=== PATIENT | male | born 1975 | race Caucasian/White ===

== ENCOUNTER 2017-04-28 11:14 | Emergency (ER) | payer OTHER ==
[2017-04-28 11:35] VITALS: BP 168/106; PULSE 96; RESP 16; TEMP 98.3
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
== END 2017-04-28 12:00 | disposition home or self-care (01) ==
LOC: EC 11:14
DX: K04.7 Periapical abscess without sinus (principal); G89.29 Other chronic pain; M54.5 Low back pain; M25.559 Pain in unspecified hip; F17.200 Nicotine dependence, unspecified, uncomplicated
CPT/HCPCS: 99283

== ENCOUNTER 2020-08-13 23:00 | Emergency (ER) | payer OTHER ==
[2020-08-13 23:10] VITALS: RESP 18
--- NOTE | 2020-08-13 23:14 | ED ---
Overdose HPI - General Chief Complaint: Overdose Stated Complaint: Mental Health Time Seen by Provider: 08/13/20 23:12 Source: patient, police, EMS Mode of arrival: EMS - History of Present Illness Initial Comments: Godfrey is a 45yo M brought to the ER via EMS after an apparent intentional ingestion. Per EMS the patient admitted to them that he had taken 5 pills of Seroquel, u nknown dosage. Stated he did this after being in a verbal this agreement with his girlfriend. Patient had been drinking today. Upon arrival in the emergency department patient is denying any ingestions, suicidal or homicidal ideation. - Related Data Home Medications Medication Instructions Recorded Confirmed Diltiazem HCl [Diltiazem ER] 240 mg PO DAILY 04/28/17 08/14/20 Allergies Allergy/AdvReac Type Severity Reaction Status Date / Time No Known Allergies Allergy Verified 08/14/20 08:10 Review of Systems ROS Statement: Those systems with pertinent positive or pertinent negative responses have been documented in the HPI. ROS Other: All systems not noted in ROS Statement are negative. Past Medical History Past Medical History: Hypertension History of Any Multi-Drug Resistant Organisms: None Reported Additional Past Surgical History / Comment(s): oral surgery Past Psychological History: Anxiety, Depression Past Alcohol Use History: Occasional Past Drug Use History: Heroin, Marijuana General Exam - General Exam Comments Initial Comments: Physical Exam GENERAL: Patient is well-developed and well-nourished. Patient is nontoxic and well-hydrated and is in no distress. HENT: Normocephalic, Atraumatic. EYES: PERRL, EOMI PULMONARY: Unlabored respirations. CARDIOVASCULAR: RRR Warm and well perfused extremities ABDOMEN: Non-distended SKIN: No rashes or bruising : Deferred NEUROLOGIC: Alert and oriented Normal speech Normal gait MUSCULOSKELETAL: Moving all extremities with no apparent injury PSYCHIATRIC: No SI/HI Course Vital Signs 08/13/20 08/14/20 08/14/20 23:01 03:21 05:00 Temperature 98.7 F Pulse Rate 96 90 92 Respiratory 18 18 18 Rate Blood Pressure 156/103 144/100 130/98 O2 Sat by Pulse 99 Oximetry 08/14/20 08/14/20 08:30 13:02 Temperature 98.0 F Pulse Rate 88 88 Respiratory 18 18 Rate Blood Pressure 136/89 144/87 O2 Sat by Pulse 97 99 Oximetry Medical Decision Making - Medical Decision Making Patient was seen and evaluated history is obtained from patient, EMS and police Patient will be petitioned by the police for suicidal statements and ingestion Tox workup was initiated EKG was obtained due to concern for ingestion, EKG was obtained at 2321, rate is 93 rhythm is sinus, leftward axis, normal intervals, IN 166, QRS he 6, QTC [address] elevations or depressions no evidence of acute ischemia or infarction. No QRS widening or prolonged QT concerning for toxic ingestion. Patient medically cleared for evaluation by EPS at 6:30 am - Lab Data Result diagrams: 08/13/20 23:20 08/13/20 23:20 Lab Results 08/13/20 08/13/20 08/13/20 Range/Units 23:20 23: 23:20 WBC 11.5 H (3.8-10.6) k/uL RBC 4.87 (4.30-5.90) m/uL Hgb 15.4 (13.0-17.5) gm/dL Hct 47.0 (39.0-53.0) % MCV 96.6 (80.0-100.0) fL MCH 31.6 (25.0-35.0) pg MCHC 32.7 (31.0-37.0) g/dL RDW 13.6 (11.5-15.5) % Plt Count 291 (150-450) k/uL Neutrophils % 49 % Lymphocytes % 42 % Monocytes % 3 % Eosinophils % 3 % Basophils % 1 % Neutrophils # 5.7 (1.3-7.7) k/uL Lymphocytes # 4.9 H (1.0-4.8) k/uL Monocytes # 0.4 (0-1.0) k/uL Eosinophils # 0.3 (0-0.7) k/uL Basophils # 0.1 (0-0.2) k/uL Sodium 142 (137-145) mmol/L Potassium 3.7 (3.5-5.1) mmol/L Chloride 104 (98-107) mmol/L Carbon Dioxide 28 (22-30) mmol/L Anion Gap 10 mmol/L BUN 10 (9-20) mg/dL Creatinine 0.79 (0.66-1.25) mg/dL Est GFR (CKD-EPI)AfAm >90 (>60 ml/min/1.73 sqM) Est GFR (CKD-EPI)NonAf >90 (>60 ml/min/1.73 sqM) Glucose 86 (74-99) mg/dL Calcium 10.6 H (8.4-10.2) mg/dL Total Bilirubin 0.3 (0.2-1.3) mg/dL AST 30 (17-59) U/L ALT 28 (4-49) U/L Alkaline Phosphatase 100 (38-126) U/L Total Protein 7.3 (6.3-8.2) g/dL Albumin 4.6 (3.5-5.0) g/dL Salicylates <1.0 mg/dL Urine Opiates Screen Not Detected (NotDetected) Ur Oxycodone Screen Not Detected (NotDetected) Urine Methadone Screen Not Detected (NotDetected) Ur Propoxyphene Screen Not Detected (NotDetected) Acetaminophen <10.0 ug/mL Ur Barbiturates Screen Not Detected (NotDetected) U Tricyclic Antidepress Not Detected (NotDetected) Ur Phencyclidine Scrn Not Detected (NotDetected) Ur Amphetamines Screen Not Detected (NotDetected) U Methamphetamines Scrn Not Detected (NotDetected) U Benzodiazepines Scrn Detected H (NotDetected) Urine Cocaine Screen Not Detected (NotDetected) U Marijuana (THC) Screen Not Detected (NotDetected) Serum Alcohol 210 H* mg/dL Disposition Clinical Impression: Depression Disposition: HOME SELF-CARE Condition: Stable Is patient prescribed a controlled substance at d/c from ED?: No Referrals: Jossy Daniels MD [Primary Care Provider] - 1-2 days
[2020-08-13 23:32] LABS: Basophils # (A) 0.1 k/uL (0-0.2); Basophils % (A) 1 %; Eosinophils # (A) 0.3 k/uL (0-0.7); Eosinophils % (A) 3 %; HGB 15.4 gm/dL (13.0-17.5); Lymphocytes # (A) 4.9 k/uL (1.0-4.8); Lymphocytes % (A) 42 %; MCH 31.6 pg (25.0-35.0); MCHC 32.7 g/dL (31.0-37.0); MCV 96.6 fL (80.0-100.0); Mean Platelet Volume 7.1; Monocytes # (A) 0.4 k/uL (0-1.0); Monocytes % (A) 3 %; Neutrophils # (A) 5.7 k/uL (1.3-7.7); Neutrophils % (A) 49 %; Platelet Count 291 k/uL (150-450); RBC 4.87 m/uL (4.30-5.90); RDW 13.6 % (11.5-15.5); WBC 11.5 k/uL (3.8-10.6)
[2020-08-14 00:08] LABS: ALT 28 U/L (4-49); AST 30 U/L (17-59); Acetaminophen <10.0 ug/mL; African American GFR (CKD) >90 (>60 ml/min/1.73 sqM); Albumin 4.6 g/dL (3.5-5.0); Alkaline Phosphatase 100 U/L (38-126); Anion Gap 10 mmol/L; Blood Urea Nitrogen 10 mg/dL (9-20); Calcium 10.6 mg/dL (8.4-10.2); Carbon Dioxide 28 mmol/L (22-30); Chloride 104 mmol/L (98-107); Glucose 86 mg/dL (74-99); Non-African American GFR(CKD) >90 (>60 ml/min/1.73 sqM); Potassium 3.7 mmol/L (3.5-5.1); Salicylate <1.0 mg/dL; Sodium 142 mmol/L (137-145); Total Bilirubin 0.3 mg/dL (0.2-1.3); Total Protein 7.3 g/dL (6.3-8.2)
[2020-08-14 00:09] LABS: Amphetamine Screen,Urine Not Detected (NotDetected); Barbiturate Screen,Urine Not Detected (NotDetected); Benzodiazepines Screen,Urine Detected (NotDetected); Cocaine Screen,Urine Not Detected (NotDetected); Methadone Screen, Urine Not Detected (NotDetected); Opiate Screen,Urine Not Detected (NotDetected); Oxycodone Screen, Urine Not Detected (NotDetected); Phencyclidine Screen,Urine Not Detected (NotDetected); Tricyclic Antidepressant,Urine Not Detected (NotDetected); Urn Cannabinoid Scrn Not Detected (NotDetected)
[2020-08-14 00:10] LABS: Alcohol 210 mg/dL
[2020-08-14] MEDS ORDERED: ALPRAZolam 1 MG TAB PO PRN (03:36)
[2020-08-14] MEDS ORDERED: DILTIAZEM CD 240 MG CAP.ER.24H PO SCH (04:00)
[2020-08-14 08:35] VITALS: PULSE 88
[2020-08-14 13:03] VITALS: BP 144/87; TEMP 98
== END 2020-08-14 13:10 | disposition home or self-care (01) ==
LOC: EC 23:00
DX: F32.9 Major depressive disorder, single episode, unspecified (principal); T43.592A Poisoning by other antipsychotics and neuroleptics, intentional self-harm, initial encounter; I10 Essential (primary) hypertension; Z79.899 Other long term (current) drug therapy
CPT/HCPCS: 82075; 36415; 93005; 80053; 85025; 80306; 83520; 99285; G0480 ×2; 80320; 80329

== ENCOUNTER 2021-04-22 19:35 | Emergency (ER) | payer OTHER ==
[2021-04-22 19:51] VITALS: BP 142/107; PULSE 116; RESP 20; TEMP 98.5
[2021-04-22] MEDS ORDERED: KETOROLAC 15 MG/ML 1 ML VIAL IM STA (20:05)
[2021-04-22] MEDS ORDERED: ACETAMINOPHEN TAB 500 MG TAB PO STA (20:05)
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
--- NOTE | 2021-04-22 20:26 | XR ---
EXAMINATION TYPE: XR ankle complete RT DATE OF EXAM: 04/22/2021 COMPARISON: NONE HISTORY: Pain. Injury. TECHNIQUE: 3 views FINDINGS: I see no fracture nor dislocation. Ankle mortise is anatomic. There is soft tissue swelling over the lateral malleolus. IMPRESSION: Soft tissue swelling. No fracture. Small Achilles calcaneal spur.
== END 2021-04-22 20:40 | disposition home or self-care (01) ==
LOC: EC 19:35
DX: S93.401A Sprain of unspecified ligament of right ankle, initial encounter (principal); R45.1 Restlessness and agitation; I10 Essential (primary) hypertension; F32.9 Major depressive disorder, single episode, unspecified; F41.9 Anxiety disorder, unspecified; F17.200 Nicotine dependence, unspecified, uncomplicated; F12.90 Cannabis use, unspecified, uncomplicated; F11.90 Opioid use, unspecified, uncomplicated; X50.1XXA Overexertion from prolonged static or awkward postures, initial encounter
CPT/HCPCS: 73610; 99283; 96372; J1885

== ENCOUNTER 2022-05-07 07:54 | Emergency (ER) | payer OTHER ==
[2022-05-07 08:01] VITALS: BP 157/99; PULSE 110; RESP 20; TEMP 97.9
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
--- NOTE | 2022-05-07 08:48 | XR ---
EXAMINATION TYPE: XR shoulder complete RT DATE OF EXAM: 05/07/2022 CLINICAL HISTORY: Fall with pain TECHNIQUE: Three views of the right shoulder are obtained. COMPARISON: Recent right shoulder MRI April 18, 2022 FINDINGS: There is no acute fracture/dislocation evident in the right shoulder. The acromioclavicul ar and glenohumeral joint spaces appear within normal limits. The visualized ribs are intact and unr emarkable. IMPRESSION: There is no acute fracture or dislocation in the right shoulder.
== END 2022-05-07 09:07 | disposition home or self-care (01) ==
LOC: EC 07:54
DX: S46.911A Strain of unspecified muscle, fascia and tendon at shoulder and upper arm level, right arm, initial encounter (principal); I10 Essential (primary) hypertension; F17.200 Nicotine dependence, unspecified, uncomplicated; W13.3XXA Fall through floor, initial encounter
CPT/HCPCS: 99284

== ENCOUNTER 2022-08-27 10:21 | Emergency (ER) | payer OTHER ==
[2022-08-27 10:40] VITALS: TEMP 97.8
[2022-08-27] MEDS ORDERED: DIPH,PERTUS(ACELL)TETVAC-LF 0.5 ML VIAL IM ONE (11:38)
[2022-08-27] MEDS ORDERED: SULFAMETHOX-TMP 800-160MG 1 EACH TAB PO STA (11:39)
[2022-08-27] MEDS ORDERED: KETOROLAC 15 MG/ML 1 ML VIAL IM STA (11:40)
[2022-08-27] MEDS ORDERED: amLODIPine 5 MG TAB PO STA (11:56)
--- NOTE | 2022-08-27 11:58 | ED ---
General Adult HPI - General Chief complaint: Skin/Abscess/Foreign Body Stated complaint: possible spider bite Time Seen by Provider: 08/27/22 11:25 Source: patient, RN notes reviewed, old records reviewed Mode of arrival: ambulatory Limitations: no limitations - History of Present Illness Initial comments: Patient is a 47-year-old male with past medical history remarkable for hypertension who presents emergency department seeking evaluation of a suspected spider bite. Appears to be homeless. Lives in tent. States he was bit by a spider on his back. This occurred yesterday. He wants to be evaluated. Endorses chronic right hip pain. Denies any fevers, chills, chest pain, shortness breath, abdominal pain, nausea, vomiting. Does have a history of hypertension, and is asking for a new antihypertensive medication. Does not follow up with their PCP. Presents for further evaluation at this time. Is also requesting a tetanus booster. - Related Data Home Medications Medication Instructions Recorded Confirmed dilTIAZem HCL [Diltiazem ER] 240 mg PO DAILY 04/28/17 08/14/20 Previous Rx's Medication Instructions Recorded Sulfamethox-Tmp 800-160Mg [Bactrim 1 tab PO Q12HR 5 Days #10 tab 08/27/22 DS 800-160 mg] amLODIPine [Norvasc] 5 mg PO DAILY 28 Days #28 tab 08/27/22 Allergies Allergy/AdvReac Type Severity Reaction Status Date / Time No Known Allergies Allergy Verified 08/27/22 10:40 Review of Systems ROS Statement: Those systems with pertinent positive or pertinent negative responses have been documented in the HPI. Review of Systems: CONST: Denies fever EYES: Denies blurry vision ENT: Denies nasal congestion C/V: Denies Chest pain RESP: Denies shortness of breath GI: Denies abdominal pain : Denies dysuria SKIN: Endorses bug bite MSK: Endorses chronic right hip. NEURO: Denies headache ROS Other: All systems not noted in ROS Statement are negative. Past Medical History Past Medical History: Hypertension History of Any Multi-Drug Resistant Organisms: None Reported Past Surgical History: No Surgical Hx Reported Additional Past Surgical History / Comment(s): oral surgery Past Psychological History: Anxiety, Depression Smoking Status: Current every day smoker Past Alcohol Use History: Occasional Past Drug Use History: Heroin, Marijuana, Opiates General Exam - General Exam Comments Initial Comments: General: Appears in no acute distress. HEAD: Normal with no signs of head trauma. EYES: EOMI ENT: Hearing grossly intact, normal oropharynx. RESPIRATORY: No respiratory distress. Clear breath sounds bilaterally. C/V: Regular rate and rhythm. S1 and S2 auscultated. Peripheral pulses 2+ intact throughout. ABD: Nondistended EXT: Normal range of motion, no obvious deformity SKIN: He has what appears to be a bug bite located over the mid left back. It is erythematous. It is somewhat draining. No induration. No fluctuance. NEURO: Alert and oriented 4. Limitations: no limitations Course Vital Signs 08/27/22 08/27/22 10:38 12:41 Temperature 97.8 F Pulse Rate 91 87 Respiratory 20 16 Rate Blood Pressure 184/117 156/99 O2 Sat by Pulse 99 100 Oximetry Medical Decision Making - Medical Decision Making Based on the patient's presentation and physical exam, concern for a bug bite. Also is requesting new blood pressure medications. He is mildly hypertensive on arrival. We will start him on Norvasc 5 mg and he will be given follow-up with PCP. He is requesting antibiotic as well as he will be given Bactrim, as well as a tetanus booster. He'll be given Toradol for pain. Do not believe that imaging or labs are required at this time. He was in agreement this plan. Strict return precautions were discussed. Vital signs within except for limits. I will provide the patient with a prescription for Norvasc, bactrim I instructed the patient to follow up with their PCP in the next 1-3 days. I provided contact information for follow up with PCP. I explained that the patient should return to the emergency department if they experience any worsening symptoms. Strict return precautions were discussed with the patient. The patient expressed understanding of these instructions. I answered all questions that the patient had. The patient was discharged home in good condition with their prescriptions and follow up information. Disposition Clinical Impression: Hypertension, Bite Disposition: HOME SELF-CARE Condition: Good Instructions (If sedation given, give patient instructions): Insect Bite or Sting (ED), Hypertension (ED) Prescriptions: Sulfamethox-Tmp 800-160Mg [Bactrim DS 800-160 mg] 1 tab PO Q12HR 5 Days #10 tab amLODIPine [Norvasc] 5 mg PO DAILY 28 Days #28 tab Is patient prescribed a controlled substance at d/c from ED?: No Referrals: Kp Suggs MD [Primary Care Provider] - 1-2 days Callie Bauman MD [REFERRING] - 1-2 days Time of Disposition: 11:55
[2022-08-27 12:42] VITALS: BP 156/99; PULSE 87; RESP 16
== END 2022-08-27 12:45 | disposition home or self-care (01) ==
LOC: EC 10:21
DX: T63.301A Toxic effect of unspecified spider venom, accidental (unintentional), initial encounter (principal); I10 Essential (primary) hypertension; F41.9 Anxiety disorder, unspecified; F32.A Depression, unspecified; F17.200 Nicotine dependence, unspecified, uncomplicated; F11.90 Opioid use, unspecified, uncomplicated; F12.90 Cannabis use, unspecified, uncomplicated; Z79.899 Other long term (current) drug therapy; Z23 Encounter for immunization
CPT/HCPCS: 90715; 99282; 96372; 90471; J1885

== ENCOUNTER 2023-11-05 12:24 | Emergency (ER) | payer OTHER ==
[2023-11-05 12:40] VITALS: RESP 16; TEMP 98.6
[2023-11-05] MEDS ORDERED: lisinopriL 20 MG TAB PO STA (13:25)
--- NOTE | 2023-11-05 13:29 | ED ---
Recheck HPI - General Chief Complaint: Recheck/Abnormal Lab/Rx Stated Complaint: Hypertension Time Seen by Provider: 11/05/23 12:51 Source: patient, RN notes reviewed Mode of arrival: ambulatory Limitations: no limitations - History of Present Illness Initial Comments: This is a 48-year-old male who presents to the emergency department for medication refills. States that he was started on lisinopril about a month ago for his blood pressure, and it seems to be working well. Currently takes 40 mg. He's been out of this for about a week and is requesting a refill. Denies any chest pain, shortness of breath, or headaches and otherwise has no complaints. MD Complaint: medication refill request - Related Data Home Medications Medication Instructions Recorded Confirmed dilTIAZem HCL [Diltiazem ER] 240 mg PO DAILY 04/28/17 08/14/20 Previous Rx's Medication Instructions Recorded Sulfamethox-Tmp 800-160Mg [Bactrim 1 tab PO Q12HR 5 Days #10 tab 08/27/22 DS 800-160 mg] amLODIPine [Norvasc] 5 mg PO DAILY 28 Days #28 tab 08/27/22 lisinopriL 40 mg PO DAILY #30 tab 11/05/23 Allergies Allergy/AdvReac Type Severity Reaction Status Date / Time No Known Allergies Allergy Verified 08/27/22 10:40 Review of Systems ROS Statement: Those systems with pertinent positive or pertinent negative responses have been documented in the HPI. ROS Other: All systems not noted in ROS Statement are negative. Past Medical History Past Medical History: Hypertension History of Any Multi-Drug Resistant Organisms: None Reported Past Surgical History: No Surgical Hx Reported Additional Past Surgical History / Comment(s): oral surgery Past Psychological History: Anxiety, Depression Smoking Status: Current every day smoker Past Alcohol Use History: Occasional Past Drug Use History: Heroin, Marijuana, Opiates General Exam Limitations: no limitations General appearance: alert, in no apparent distress Head exam: Present: atraumatic, normocephalic, normal inspection Respiratory exam: Present: normal lung sounds bilaterally. Absent: respiratory distress, wheezes, rales, rhonchi, stridor Cardiovascular Exam: Present: regular rate, normal rhythm, normal heart sounds. Absent: systolic murmur, diastolic murmur, rubs, gallop, clicks Neurological exam: Present: alert, oriented X3, CN II-XII intact Psychiatric exam: Present: normal affect, normal mood Skin exam: Present: warm, dry, intact, normal color. Absent: rash Course Vital Signs 11/05/23 11/05/23 12:34 13:39 Temperature 98.6 F Pulse Rate 97 69 Respiratory 16 16 Rate Blood Pressure 158/101 158/96 O2 Sat by Pulse 98 97 Oximetry Medical Decision Making - Medical Decision Making This is a 48-year-old male who presents to the emergency department for medication refills. Was pt. sent in by a medical professional or institution? @ -No Did you speak to anyone other than the patient for history? @ -No Did you review nursing and triage notes? @ -Yes, and I agree, it is accurate with regards to the patient's symptoms. Were old charts reviewed? @ -No Differential Diagnosis? @ -Not applicable EKG interpreted by me (3pts min.)? @ -Not obtained X-rays interpreted by me (1pt min.)? @ -Not obtained CT interpreted by me (1pt min.)? @ -Not obtained U/S interpreted by me (1pt. min.)? @ -Not obtained What testing was considered but not performed? (CT, X-rays, U/S, labs)? Why? @ -None What meds were considered but not given? Why? @ -None Did you discuss the management of the patient with other professionals? @ -No Did you reconcile home meds? @ -No Was smoking cessation discussed for >3mins.? @ -No Was critical care preformed (if so, how long)? @ -No Were there social determinants of health that impacted care today? How? (Homelessness, low income, unemployed, alcoholism, drug addiction, transportation, low edu. Level, literacy, decrease access to med. care, [facility]ci, rehab)? @ -No Was there de-escalation of care discussed even if they declined? (Discuss DNR or withdrawal of care, Hospice)? @ -No What co-morbidities impacted this encounter? (DM, HTN, Smoking, COPD, CAD, Cancer, CVA, Hep., AIDS, mental health diagnosis, sleep apnea, morbid obesity)? @ -HTN Was patient admitted / discharged? @ -Discharged. BP was 158/101 on arrival and he was asymptomatic. He was given his home dose of Lisinopril, 40mg. Refill on the Lisinopril was provided. Otherwise advised he follow up with his PCP to continue having his BP monitored and have his medication refilled. Undiagnosed new problem with uncertain prognosis? @ -None Drug Therapy requiring intensive monitoring for toxicity (Heparin, Nitro, Insulin, Cardizem)? @ -None Were any procedures done? @ -None Diagnosis/symptom? @ -Hypertension Acute, or Chronic, or Acute on Chronic? @ -Chronic Uncomplicated (without systemic symptoms) or Complicated (systemic symptoms)? @ -Uncomplicated Side effects of treatment? @ -None Exacerbation, Progression, or Severe Exacerbation] @ -Possible mild progression due to being without medication. Poses a threat to life or bodily function? @ -Unlikely with his current BP. Return precautions reviewed in depth, the patient is instructed to return to the emergency department with any new, worsening, or concerning symptoms. Patient verbalized understanding. This case was discussed in detail with the attending ED physician, Dr. Gamble. Presentation, findings, and treatment plan discussed in detail as well. Disposition Clinical Impression: Encounter for medication refill, Hypertension Disposition: HOME SELF-CARE Instructions (If sedation given, give patient instructions): Hypertension (ED) Additional Instructions: Return to the emergency department with any new, worsening, or concerning symptoms. Continue taking your lisinopril as prescribed. Follow up with your primary care provider in 1-2 days. Prescriptions: lisinopriL 40 mg PO DAILY #30 tab Is patient prescribed a controlled substance at d/c from ED?: No Referrals: None,Stated [Primary Care Provider] - 1-2 days Time of Disposition: 13:29
[2023-11-05 13:53] VITALS: BP 158/96; PULSE 69
== END 2023-11-05 13:44 | disposition home or self-care (01) ==
LOC: EC 12:24
DX: I10 Essential (primary) hypertension (principal); F17.200 Nicotine dependence, unspecified, uncomplicated; F12.90 Cannabis use, unspecified, uncomplicated; F11.90 Opioid use, unspecified, uncomplicated; Z76.0 Encounter for issue of repeat prescription; Z79.899 Other long term (current) drug therapy
CPT/HCPCS: 99283

== ENCOUNTER 2024-07-10 06:49 | Emergency (ER) | payer SELFPAY ==
[2024-07-10 07:05] VITALS: BP 154/102; PULSE 76; RESP 16; TEMP 97.3
--- NOTE | 2024-07-10 07:28 | ED ---
General Adult HPI - General Chief complaint: Recheck/Abnormal Lab/Rx Stated complaint: High Blood Pressure Time Seen by Provider: 07/10/24 07:00 Source: patient, RN notes reviewed Limitations: no limitations - History of Present Illness Initial comments: 49-year-old male presents emergency room chief complaint of hypertension. Patient states he is out of his lisinopril. He takes 40 mg lisinopril daily he states that a couple days since his last dose. Denies any chest pain shortness of breath no other complaints. - Related Data Home Medications Medication Instructions Recorded Confirmed dilTIAZem HCL [Diltiazem ER] 240 mg PO DAILY 04/28/17 08/14/20 Previous Rx's Medication Instructions Recorded Sulfamethox-Tmp 800-160Mg [Bactrim 1 tab PO Q12HR 5 Days #10 tab 08/27/22 DS 800-160 mg] amLODIPine [Norvasc] 5 mg PO DAILY 28 Days #28 tab 08/27/22 lisinopriL 40 mg PO DAILY #30 tab 07/10/24 Allergies Allergy/AdvReac Type Severity Reaction Status Date / Time No Known Allergies Allergy Verified 07/10/24 07:01 Review of Systems ROS Statement: Those systems with pertinent positive or pertinent negative responses have been documented in the HPI. ROS Other: All systems not noted in ROS Statement are negative. Past Medical History Past Medical History: Hypertension History of Any Multi-Drug Resistant Organisms: None Reported Past Surgical History: No Surgical Hx Reported Additional Past Surgical History / Comment(s): oral surgery Past Psychological History: Anxiety, Depression Smoking Status: Current every day smoker Past Alcohol Use History: Occasional Past Drug Use History: Heroin, Marijuana, Opiates General Exam Limitations: no limitations General appearance: alert, in no apparent distress Head exam: Present: atraumatic, normocephalic, normal inspection Eye exam: Present: normal appearance, PERRL, EOMI. Absent: scleral icterus, conjunctival injection, periorbital swelling ENT exam: Present: normal exam, mucous membranes moist Neck exam: Present: normal inspection. Absent: tenderness, meningismus, lymphadenopathy Respiratory exam: Present: normal lung sounds bilaterally. Absent: respiratory distress, wheezes, rales, rhonchi, stridor Cardiovascular Exam: Present: regular rate, normal rhythm, normal heart sounds. Absent: systolic murmur, diastolic murmur, rubs, gallop, clicks Course Vital Signs 07/10/24 07:01 Temperature 97.3 F L Pulse Rate 76 Respiratory 16 Rate Blood Pressure 154/102 O2 Sat by Pulse 98 Oximetry Medical Decision Making - Medical Decision Making Was pt. sent in by a medical professional or institution (ANDREW Driscoll, CHANGE ROOM ATTENDANT, urgent care, hospital, or senior care...) When possible be specific @ -No Did you speak to anyone other than the patient for history (EMS, parent, family, police, friend...)? What history was obtained from this source @ -No Did you review nursing and triage notes (agree or disagree)? Why? @ -I reviewed and agree with nursing and triage notes Were old charts reviewed (outside hosp., previous admission, EMS record, old EKG, old radiological studies, urgent care reports/EKG's, senior care records)? Report findings @ -No old charts were reviewed Differential Diagnosis (chest pain, altered mental status, abdominal pain women, abdominal pain men, vaginal bleeding, weakness, fever, dyspnea, syncope, headache, dizziness, GI bleed, back pain, seizure, CVA, palpatations, mental health, musculoskeletal)? @ -Hypertension, medication noncompliance, medication refill EKG interpreted by me (3pts min.). @ -None X-rays interpreted by me (1pt min.). @ -None done CT interpreted by me (1pt min.). @ -None done U/S interpreted by me (1pt. min.). @ -None done What testing was considered but not performed or refused? (CT, X-rays, U/S, labs)? Why? @ -None What meds were considered but not given or refused? Why? @ -None Did you discuss the management of the patient with other professionals (professionals i.e. ANDREW Driscoll, CHANGE ROOM ATTENDANT, lab, RT, psych nurse, social work administrator, autism motor specialist, teacher, tax compliance officer, protective services case worker)? Give summary @ -No Was smoking cessation discussed for >3mins.? @ -No Was critical care preformed (if so, how long)? @ -No Were there social determinants of health that impacted care today? How? (Homelessness, low income, unemployed, alcoholism, drug addiction, transp ortation, low edu. Level, literacy, decrease access to med. care, custodial, rehab)? @ -No Was there de-escalation of care discussed even if they declined (Discuss DNR or withdrawal of care, Hospice)? DNR status @ -No What co-morbidities impacted this encounter? (DM, HTN, Smoking, COPD, CAD, Cancer, CVA, ARF, Chemo, Hep., AIDS, mental health diagnosis, sleep apnea, morbid obesity)? @ -Hypertension Was patient admitted / discharged? Hospital course, mention meds given and route, prescriptions, significant lab abnormalities, going to OR and other pertinent info. @ -[Discharged patient provided prescription for use lisinopril for 1 month advised to follow-up with PCP rosie zhang discussed patient is asymptomatic. Undiagnosed new problem with uncertain prognosis? @ -No Drug Therapy requiring intensive monitoring for toxicity (Heparin, Nitro, Insulin, Cardizem)? @ -No Were any procedures done? @ -No Diagnosis/symptom? @ -Hypertension, medication refill Acute, or Chronic, or Acute on Chronic? @ -Acute Uncomplicated (without systemic symptoms) or Complicated (systemic symptoms)? @ -Uncomplicated Side effects of treatment? @ -No Exacerbation, Progression, or Severe Exacerbation? @ -No Poses a threat to life or bodily function? How? (Chest pain, [place], [place], pneumonia, PE, COPD, DKA, ARF, appy, cholecystitis, CVA, Diverticulitis, Homicidal, Suicidal, threat to staff... and all critical care pts) @ -No Disposition Clinical Impression: Encounter for medication refill, Hypertension Disposition: HOME SELF-CARE Condition: Stable Additional Instructions: Please return to the Emergency Department if symptoms worsen or any other concerns. Prescriptions: lisinopriL 40 mg PO DAILY #30 tab Is patient prescribed a controlled substance at d/c from ED?: No Referrals: None,Stated [Primary Care Provider] - 1-2 days Time of Disposition: 07:28
== END 2024-07-10 07:48 | disposition home or self-care (01) ==
LOC: EC 06:49
CPT/HCPCS: 99283

== ENCOUNTER 2024-09-17 13:08 | Emergency (ER) | payer OTHER ==
--- NOTE | 2024-09-17 13:51 | ED ---
General Adult HPI - General Chief complaint: Upper Respiratory Infection Stated complaint: XIN,L hand injury Time Seen by Provider: 09/17/24 13:20 Source: patient, RN notes reviewed Mode of arrival: ambulatory Limitations: no limitations - History of Present Illness Initial comments: This is a 49-year-old male presenting to the emergency department chief complaint of left hand pain and upper respiratory type symptoms. Patient states that a few days ago he had an injury where he fell onto his left hand. Patient has full range of motion however is endorsing pain over the dorsum of the hand. Denies paresthesias. Additionally, states over the past few days he has been experiencing a productive cough this pain is exacerbated with cough. Endorses congestion and runny nose. Denies fevers, chills. That approximately 1 week ago he began to experience mid chest pain that was not exacerbated with activity. Described as a pinching type sensation. - Related Data Home Medications Medication Instructions Recorded Confirmed dilTIAZem HCL [Diltiazem ER] 240 mg PO DAILY 04/28/17 08/14/20 Previous Rx's Medication Instructions Recorded Sulfamethox-Tmp 800-160Mg [Bactrim 1 tab PO Q12HR 5 Days #10 tab 08/27/22 DS 800-160 mg] amLODIPine [Norvasc] 5 mg PO DAILY 28 Days #28 tab 08/27/22 lisinopriL 40 mg PO DAILY #30 tab 07/10/24 lisinopriL [Zestril] 40 mg PO DAILY #30 tablet 09/17/24 Allergies Allergy/AdvReac Type Severity Reaction Status Date / Time No Known Allergies Allergy Verified 07/10/24 07:01 Review of Systems ROS Statement: Those systems with pertinent positive or pertinent negative responses have been documented in the HPI. ROS Other: All systems not noted in ROS Statement are negative. Past Medical History Past Medical History: Hypertension History of Any Multi-Drug Resistant Organisms: None Reported Past Surgical History: No Surgical Hx Reported Additional Past Surgical History / Comment(s): oral surgery Past Psychological History: Anxiety, Depression Smoking Status: Current every day smoker Past Alcohol Use History: Occasional Past Drug Use History: Heroin, Marijuana, Opiates General Exam Limitations: no limitations General appearance: alert, in no apparent distress ENT exam: Present: normal exam, mucous membranes moist Neck exam: Present: normal inspection. Absent: tenderness, meningismus, lymphadenopathy Respiratory exam: Present: normal lung sounds bilaterally. Absent: respiratory distress, wheezes, rales, rhonchi, stridor Cardiovascular Exam: Present: regular rate, normal rhythm, normal heart sounds. Absent: systolic murmur, diastolic murmur, rubs, gallop, clicks GI/Abdominal exam: Present: soft, normal bowel sounds. Absent: distended, tenderness, guarding, rebound, rigid Extremities exam: Present: normal inspection, full ROM, normal capillary refill. Absent: tenderness, pedal edema, joint swelling, calf tenderness Left Hand Wrist exam: Present: tenderness (with range of motion) Vascular: Present: normal capillary refill. Absent: vascular compromise Back exam: Present: normal inspection Neurological exam: Present: alert, oriented X3, CN II-XII intact Course Vital Signs 09/17/24 09/17/24 09/17/24 13:34 14:14 15:33 Temperature 98.5 F 98.1 F Pulse Rate 78 89 Respiratory 20 18 18 Rate Blood Pressure 133/87 136/80 O2 Sat by Pulse 99 97 Oximetry Medical Decision Making - Medical Decision Making Was pt. sent in by a medical professional or institution (, PA, COUNTER STACKER, urgent care, hospital, or half-way...) When possible be specific @ -No Did you speak to anyone other than the patient for history (EMS, parent, family, police, friend...)? What history was obtained from this source @ -No Did you review nursing and triage notes (agree or disagree)? Why? @ -I reviewed and agree with nursing and triage notes Were old charts reviewed (outside hosp., previous admission, EMS record, old EKG, old radiological studies, urgent care reports/EKG's, half-way records)? Report findings @ -No old charts were reviewed Differential Diagnosis (chest pain, altered mental status, abdominal pain women, abdominal pain men, vaginal bleeding, weakness, fever, dyspnea, syncope, headache, dizziness, GI bleed, back pain, seizure, CVA, palpatations, mental health, musculoskeletal)? @ -Differential Chest Pain: Stable Angina, Unstable Angina, STEMI, NSTEMI Aortic Dissection, Pneumothorax, Musculoskeletal, Esophageal Spasm GERD, Cholecystitis, Pancreatitis, Zoster, this is not meant to be an all-inclusive list. EKG interpreted by me (3pts min.). @ -completed at 1402 sinus rhythm with a ventricular rate of 76, CT interval 135, QRS 85, QTc 413. X-rays interpreted by me (1pt min.). @ -chest xray no acute cardiopulmonary process or disease CT interpreted by me (1pt min.). @ -None done U/S interpreted by me (1pt. min.). @ -None done What testing was considered but not performed or refused? (CT, X-rays, U/S, labs)? Why? @ -None What meds were considered but not given or refused? Why? @ -None Did you discuss the management of the patient with other professionals (professionals i.e. , PA, COUNTER STACKER, lab, RT, psych nurse, social science instructor, circle cutting saw operator, teacher, staff weapons officer, machine adjuster leader case trim)? Give summary @ -No Was smoking cessation discussed for >3mins.? @ -No Was critical care preformed (if so, how long)? @ -No Were there social determinants of health that impacted care today? How? (Homelessness, low income, unemployed, alcoholism, drug addiction, transportation, low edu. Level, literacy, decrease access to med. care, half-way, r ehab)? @ -No Was there de-escalation of care discussed even if they declined (Discuss DNR or withdrawal of care, Hospice)? DNR status @ -No What co-morbidities impacted this encounter? (DM, HTN, Smoking, COPD, CAD, Cancer, CVA, ARF, Chemo, Hep., AIDS, mental health diagnosis, sleep apnea, morbid obesity)? @ -None Was patient admitted / discharged? Hospital course, mention meds given and route, prescriptions, significant lab abnormalities, going to OR and other pertinent info. @ -discharge. 49-year-old male with left hand pain, respiratory infection type symptoms, and chest pain. On evaluation patient noted to have pain to his left hand with no obvious deformity noted. Discussed with patient that symptoms likely secondary to hand sprain and for imaging of the head at this time. Patient is here with this plan. EKG reveals sinus rhythm. Patient will undergo cardiac workup with concern for chest pain. Chest x-ray no acute cardiopulmonary process. Laboratory studies including CBC, CMP, troponin, coagulation profile within normal limits. Viral panel negative. Strep negative. Discussed with patient at bedside that symptoms likely secondary to viral syndrome and continue supportive treatment at home. There is minimal clinical concern for adverse cardiac event to occur within the next 6 weeks as patient's heart score is minimal. All questions have been answered at bedside a nswered return parameters discussed with the patient he is verbalized understanding. Discussed with Dr. Cisneros Undiagnosed new problem with uncertain prognosis? @ -No Drug Therapy requiring intensive monitoring for toxicity (Heparin, Nitro, Insulin, Cardizem)? @ -No Were any procedures done? @ -No Diagnosis/symptom? @ -Viral syndrome, hand pain Acute, or Chronic, or Acute on Chronic? @ -acute Uncomplicated (without systemic symptoms) or Complicated (systemic symptoms)? @ -uncomplicated Side effects of treatment? @ -No Exacerbation, Progression, or Severe Exacerbation? @ -No Poses a threat to life or bodily function? How? (Chest pain, [place], [place], pneumonia, PE, COPD, DKA, ARF, appy, cholecystitis, CVA, Diverticulitis, Homicidal, Suicidal, threat to staff... and all critical care pts) @ -No - Lab Data Result diagrams: 09/17/24 14:09 09/17/24 14:09 Lab Results 09/17/24 09/17/24 09/17/24 Range/Units 14:09 14:09 14:09 WBC 9.2 (3.8-10.6) k/uL RBC 4.36 (4.30-5.90) m/uL Hgb 14.3 (13.0-17.5) gm/dL Hct 43.1 (39.0-53.0) % MCV 99.0 (80.0-100.0) fL MCH 32.7 (25.0-35.0) pg MCHC 33.0 (31.0-37.0) g/dL RDW 13.5 (11.5-15.5) % Plt Count 232 (150-450) k/uL MPV 7.7 Neutrophils % 74 % Lymphocytes % 15 % Monocytes % 7 % Eosinophils % 2 % Basophils % 0 % Neutrophils # 6.8 (1.3-7.7) k/uL Lymphocytes # 1.3 (1.0-4.8) k/uL Monocytes # 0.6 (0-1.0) k/uL Eosinophils # 0.2 (0-0.7) k/uL Basophils # 0.0 (0-0.2) k/uL PT 9.8 L (10.0-12.5) sec INR 0.9 (<1.2) APTT 24.4 (22.0-30.0) sec Sodium 137 (137-145) mmol/L Potassium 4.1 (3.5-5.1) mmol/L Chloride 105 (98-107) mmol/L Carbon Dioxide 27 (22-30) mmol/L Anion Gap 5 mmol/L BUN 9 (9-20) mg/dL Creatinine 0.75 (0.66-1.25) mg/dL Est GFR (CKD-EPI)AfAm >90 (>60 ml/min/1.73 sqM) Est GFR (CKD-EPI)NonAf >90 (>60 ml/min/1.73 sqM) Glucose 106 H (74-99) mg/dL Calcium 9.1 (8.4-10.2) mg/dL Magnesium 2.0 (1.6-2.3) mg/dL Total Bilirubin 0.4 (0.2-1.3) mg/dL AST 28 (17-59) U/L ALT 21 (4-49) U/L Alkaline Phosphatase 76 (38-126) U/L Troponin I (0.000-0.034) ng/mL Total Protein 6.5 (6.3-8.2) g/dL Albumin 4.2 (3.5-5.0) g/dL Influenza Type A (PCR) (Not Detectd) Influenza Type B (PCR) (Not Detectd) RSV (PCR) (Not Detectd) SARS-CoV-2 (PCR) (Not Detectd) Group A Strep (PCR) (Not Detectd) 09/17/24 09/17/24 09/17/24 Range/Units 14:09 14:09 14:09 WBC (3.8-10.6) k/uL RBC (4.30-5.90) m/uL Hgb (13.0-17.5) gm/dL Hct (39.0-53.0) % MCV (80.0-100.0) fL MCH (25.0-35.0) pg MCHC (31.0-37.0) g/dL RDW (11.5-15.5) % Plt Count (150-450) k/uL MPV Neutrophils % % Lymphocytes % % Monocytes % % Eosinophils % % Basophils % % Neutrophils # (1.3-7.7) k/uL Lymphocytes # (1.0-4.8) k/uL Monocytes # (0-1.0) k/uL Eosinophils # (0-0.7) k/uL Basophils # (0-0.2) k/uL PT (10.0-12.5) sec INR (<1.2) APTT (22.0-30.0) sec Sodium (137-145) mmol/L Potassium (3.5-5.1) mmol/L Chloride (98-107) mmol/L Carbon Dioxide (22-30) mmol/L Anion Gap mmol/L BUN (9-20) mg/dL Creatinine (0.66-1.25) mg/dL Est GFR (CKD-EPI)AfAm (>60 ml/min/1.73 sqM) Est GFR (CKD-EPI)NonAf (>60 ml/min/1.73 sqM) Glucose (74-99) mg/dL Calcium (8.4-10.2) mg/dL Magnesium (1.6-2.3) mg/dL Total Bilirubin (0.2-1.3) mg/dL AST (17-59) U/L ALT (4-49) U/L Alkaline Phosphatase (38-126) U/L Troponin I <0.012 (0.000-0.034) ng/mL Total Protein (6.3-8.2) g/dL Albumin (3.5-5.0) g/dL Influenza Type A (PCR) Not Detected (Not Detectd) Influenza Type B (PCR) Not Detected (Not Detectd) RSV (PCR) Not Detected (Not Detectd) SARS-CoV-2 (PCR) Not Detected (Not Detectd) Group A Strep (PCR) NOT DETECTED (Not Detectd) Disposition Clinical Impression: Cough, Viral syndrome Disposition: HOME SELF-CARE Condition: Good Instructions (If sedation given, give patient instructions): Viral Syndrome (ED) Additional Instructions: Please return to the Emergency Department if symptoms worsen or any other concerns. Prescriptions: lisinopriL [Zestril] 40 mg PO DAILY #30 tablet Is patient prescribed a controlled substance at d/c from ED?: No Referrals: None,Stated [Primary Care Provider] - 1-2 days Time of Disposition: 15:22
[2024-09-17 14:15] VITALS: RESP 18
[2024-09-17 14:18] LABS: Basophils % (A) 0 %; Eosinophils # (A) 0.2 k/uL (0-0.7); Eosinophils % (A) 2 %; HCT 43.1 % (39.0-53.0); HGB 14.3 gm/dL (13.0-17.5); Lymphocytes # (A) 1.3 k/uL (1.0-4.8); Lymphocytes % (A) 15 %; MCH 32.7 pg (25.0-35.0); Mean Platelet Volume 7.7; Monocytes # (A) 0.6 k/uL (0-1.0); Monocytes % (A) 7 %; Neutrophils # (A) 6.8 k/uL (1.3-7.7); Neutrophils % (A) 74 %; Platelet Count 232 k/uL (150-450); RBC 4.36 m/uL (4.30-5.90); RDW 13.5 % (11.5-15.5); WBC 9.2 k/uL (3.8-10.6)
--- NOTE | 2024-09-17 14:19 | XR ---
EXAMINATION TYPE: XR chest 2V DATE OF EXAM: 09/17/2024 2:14 PM COMPARISON: None TECHNIQUE: XR chest 2V Frontal and lateral views of the chest. CLINICAL INDICATION:Male, 49 years old with history of productive cough, chest pain, SOB; FINDINGS: Lungs/Pleura: There is no evidence of pleural effusion, focal consolidation, or pneumothorax. Pulmonary vascularity: Unremarkable. Heart/mediastinum: Cardiomediastinal silhouette is unremarkable. Musculoskeletal: No acute osseous pathology. IMPRESSION: No acute cardiopulmonary disease/process. [facility], , 09/17/2024 2:17 PM
[2024-09-17] MEDS: KETOROLAC 15 MG/ML 1 ML VIAL IVP STA (14:33)
[2024-09-17 14:37] LABS: INR 0.9 (<1.2); Partial Thromboplastin Time 24.4 sec (22.0-30.0); Prothrombin Time 9.8 sec (10.0-12.5)
[2024-09-17 14:59] LABS: ALT 21 U/L (4-49); AST 28 U/L (17-59); African American GFR (CKD) >90 (>60 ml/min/1.73 sqM); Albumin 4.2 g/dL (3.5-5.0); Alkaline Phosphatase 76 U/L (38-126); Anion Gap 5 mmol/L; Blood Urea Nitrogen 9 mg/dL (9-20); Calcium 9.1 mg/dL (8.4-10.2); Carbon Dioxide 27 mmol/L (22-30); Chloride 105 mmol/L (98-107); Glucose 106 mg/dL (74-99); Non-African American GFR(CKD) >90 (>60 ml/min/1.73 sqM); Potassium 4.1 mmol/L (3.5-5.1); Sodium 137 mmol/L (137-145); Total Bilirubin 0.4 mg/dL (0.2-1.3); Total Protein 6.5 g/dL (6.3-8.2)
[2024-09-17 15:34] VITALS: BP 136/80; PULSE 89; TEMP 98.1
== END 2024-09-17 15:34 | disposition home or self-care (01) ==
LOC: EC 13:08
DX: B34.9 Viral infection, unspecified (principal); M79.642 Pain in left hand; F17.200 Nicotine dependence, unspecified, uncomplicated
CPT/HCPCS: 99285; 96374; 36415; 87651; 80053; 83735; 84484; 85025; 85610; 85730; 87636; 71046; J1885

== ENCOUNTER 2024-09-19 13:51 | Emergency (ER) | payer OTHER ==
[2024-09-19 13:57] VITALS: RESP 18; TEMP 97.9
[2024-09-19] MEDS: HYDROmorphone 1 MG/ML 1 ML SYRINGE IM STA (15:06)
--- NOTE | 2024-09-19 15:32 | XR ---
EXAMINATION TYPE: XR thoracic spine 2V DATE OF EXAM: 09/19/2024 3:22 PM COMPARISON: Previous chest radiograph 09/17/2024. CLINICAL INDICATION: Male, 49 years old with history of pain,trauma; [facility] TECHNIQUE: XR thoracic spine 2V views of the spine in Frontal and lateral projections. FINDINGS: No evidence of acute fracture. Vertebral body heights appear maintained. Alignment is maintained. Par tially visualized lungs appear clear. No displaced rib fracture appreciated. Minimal anterior osteoph yte formation and minimal intervertebral disc space loss at multiple levels. Multilevel mild facet ar thropathy. IMPRESSION: No acute fracture or traumatic subluxation. [facility], , 09/19/2024 3:30 PM
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
[2024-09-19 16:09] VITALS: BP 180/88; PULSE 100
[2024-09-19] MEDS: ACET/COD 300 MG/30 MG STARTER PACK 6 TAB BTL PO STA (16:10)
[2024-09-19] MEDS: HYDROcodone/APAP 5-325MG 1 EACH TAB PO STA (16:10)
== END 2024-09-19 16:12 | disposition home or self-care (01) ==
LOC: EC 13:51
DX: M54.6 Pain in thoracic spine (principal); F17.200 Nicotine dependence, unspecified, uncomplicated; V19.9XXA Pedal cyclist (driver) (passenger) injured in unspecified traffic accident, initial encounter
CPT/HCPCS: 99283; 96372; 72070; J1171

== ENCOUNTER 2025-01-24 13:17 | Observation (INO) | payer OTHER ==
[2025-01-24 14:51] LABS: Basophils % (A) 0 %; Eosinophils # (A) 0.1 k/uL (0-0.7); Eosinophils % (A) 1 %; HCT 38.6 % (39.0-53.0); HGB 12.9 gm/dL (13.0-17.5); Lymphocytes # (A) 1.2 k/uL (1.0-4.8); Lymphocytes % (A) 14 %; MCH 31.2 pg (25.0-35.0); MCHC 33.5 g/dL (31.0-37.0); Mean Platelet Volume 7.5; Monocytes # (A) 0.4 k/uL (0-1.0); Monocytes % (A) 5 %; Neutrophils # (A) 6.4 k/uL (1.3-7.7); Neutrophils % (A) 78 %; Platelet Count 198 k/uL (150-450); RBC 4.15 m/uL (4.30-5.90); WBC 8.1 k/uL (3.8-10.6)
[2025-01-24 14:52] LABS: ALT 36 U/L (4-49); AST 50 U/L (17-59); African American GFR (CKD) >90 (>60 ml/min/1.73 sqM); Albumin 4.2 g/dL (3.5-5.0); Alcohol <10 mg/dL; Alkaline Phosphatase 77 U/L (38-126); Anion Gap 7 mmol/L; Blood Urea Nitrogen 18 mg/dL (9-20); Calcium 8.7 mg/dL (8.4-10.2); Carbon Dioxide 28 mmol/L (22-30); Chloride 97 mmol/L (98-107); Glucose 127 mg/dL (74-99); Lipase 151 U/L (23-300); Magnesium 1.5 mg/dL (1.6-2.3); Non-African American GFR(CKD) >90 (>60 ml/min/1.73 sqM); Potassium 3.9 mmol/L (3.5-5.1); Sodium 132 mmol/L (137-145); Total Bilirubin 0.9 mg/dL (0.2-1.3); Total Protein 6.4 g/dL (6.3-8.2)
[2025-01-24 14:54] LABS: INR 0.9 (<1.2); Partial Thromboplastin Time 22.2 sec (22.0-30.0); Prothrombin Time 10.3 sec (10.0-12.5)
--- NOTE | 2025-01-24 15:02 | XR ---
EXAMINATION TYPE: XR chest 2V DATE OF EXAM: 01/24/2025 2:55 PM COMPARISON: Chest radiographs from 09/17/2024 TECHNIQUE: XR chest 2V Frontal and lateral views of the chest. CLINICAL INDICATION:Male, 49 years old with history of Chest Pain; FINDINGS: Lungs/Pleura: There is no evidence of pleural effusion, focal consolidation, or pneumothorax. Pulmonary vascularity: Unremarkable. Heart/mediastinum: Cardiomediastinal silhouette is unremarkable. Musculoskeletal: No acute osseous pathology. IMPRESSION: No acute cardiopulmonary disease/process. [facility], , 01/24/2025 3:00 PM
[2025-01-24 15:03] LABS: Appearance,Urine Clear (Clear); Bacteria,Urine Rare /hpf; Bilirubin,Urine Negative (Negative); Blood,Urine Negative (Negative); Color,Urine Yellow; Glucose,Urine (UA) Negative (Negative); Ketones,Urine 2+ (Negative); Leukocyte Esterase,Urine Negative (Negative); Mucus,Urine Rare /hpf; Nitrite,Urine Negative (Negative); Protein,Urine 1+ (Negative); RBC,Urine 2 /hpf (0-5); Specific Gravity,Urine 1.026 (1.001-1.035); Squamous Epithelial Cell,Urine 1 /hpf (0-4); WBC,Urine 1 /hpf (0-5)
[2025-01-24 15:04] LABS: Amphetamine Screen,Urine Not Detected (NotDetected); Barbiturate Screen,Urine Not Detected (NotDetected); Benzodiazepines Screen,Urine Not Detected (NotDetected); Cocaine Screen,Urine Not Detected (NotDetected); Methadone Screen, Urine Not Detected (NotDetected); Opiate Screen,Urine Not Detected (NotDetected); Oxycodone Screen, Urine Not Detected (NotDetected); Phencyclidine Screen,Urine Not Detected (NotDetected); Tricyclic Antidepressant,Urine Not Detected (NotDetected); Urn Cannabinoid Scrn Detected (NotDetected)
--- NOTE | 2025-01-24 15:35 | ED ---
Chest Pain HPI - General Chief Complaint: Chest Pain Stated Complaint: chest pain Time Seen by Provider: 01/24/25 13:25 Source: patient Mode of arrival: ambulatory Limitations: no limitations - History of Present Illness Initial Comments: 49-year-old male with past medical history of opiate abuse, heroin abuse who presents to the emergency department chest pain. Reports that he started having chest pain yesterday. Pain is located in the left side of his chest. He describes it as a pressure sensation. Also feels as if his heart is racing. States that he has had a lot of depression recently and has been drinking heavily to try and numb his sadness. He drinks daily. Did drink a pint of vodka yesterday. He denies actively wanting to kill himself. He denies history of cardiac disease but has have a history of hypertension. Also has substance abuse issues. No fevers, chills or cough. Does admit to having some vomiting this morning but no longer feels nauseated. No ripping or tearing station to his back. No calf pain or swelling. No other alleviating, precipitating or modifying factors - Related Data Previous Rx's Medication Instructions Recorded Acetaminophen Tab [Tylenol] 650 mg PO Q6HR PRN tab 01/25/25 Famotidine [Pepcid] 20 mg PO BID #60 tab 01/25/25 Multivitamins, Thera [Multivitamin 1 each PO DAILY #30 tab 01/25/25 (formulary)] Thiamine [Vitamin B-1] 100 mg PO DAILY #30 tab 01/25/25 chlordiazePOXIDE HCl [Librium] 25 mg PO TID #6 cap 01/25/25 lisinopriL 40 mg PO DAILY 30 Days #30 tab 01/25/25 Allergies Allergy/AdvReac Type Severity Reaction Status Date / Time No Known Allergies Allergy Verified 01/24/25 16:16 Review of Systems ROS Statement: Those systems with pertinent positive or pertinent negative responses have been documented in the HPI. ROS Other: All systems not noted in ROS Statement are negative. Past Medical History Past Medical History: Hypertension History of Any Multi-Drug Resistant Organisms: None Reported Past Surgical History: No Surgical Hx Reported Additional Past Surgical History / Comment(s): oral surgery Past Psychological History: Anxiety, Depression Smoking Status: Current every day smoker Past Alcohol Use History: Abuse Past Drug Use History: Heroin, Marijuana, Opiates General Exam Limitations: no limitations General appearance: alert, other (Tremulous) Head exam: Present: atraumatic, normocephalic, normal inspection Eye exam: Present: normal appearance, PERRL, EOMI. Absent: scleral icterus, conjunctival injection, periorbital swelling ENT exam: Present: normal exam, mucous membranes moist Neck exam: Present: normal inspection. Absent: tenderness, meningismus, lymphadenopathy Respiratory exam: Present: normal lung sounds bilaterally. Absent: respiratory distress, wheezes, rales, rhonchi, stridor Cardiovascular Exam: Present: regular rate, normal rhythm, normal heart sounds. Absent: systolic murmur, diastolic murmur, rubs, gallop, clicks GI/Abdominal exam: Present: soft, normal bowel sounds. Absent: distended, tenderness, guarding, rebound, rigid Extremities exam: Present: normal inspection, full ROM, normal capillary refill. Absent: tenderness, pedal edema, joint swelling, calf tenderness Back exam: Present: normal inspection Neurological exam: Present: alert, oriented X3, CN II-XII intact Psychiatric exam: Present: depressed Skin exam: Present: warm, dry, intact, normal color. Absent: rash Course Vital Signs 01/24/25 01/24/25 01/24/25 13:22 14:24 15:40 Temperature 98.5 F 99.5 F Pulse Rate 121 H 95 96 Respiratory 17 18 22 Rate Blood Pressure 194/125 168/95 169/99 O2 Sat by Pulse 96 99 97 Oximetry 01/24/25 01/24/25 01/24/25 17:34 19:04 22:00 Temperature 98.3 F Pulse Rate 98 87 77 Respiratory 20 18 15 Rate Blood Pressure 152/97 147/105 142/99 O2 Sat by Pulse 97 98 96 Oximetry 01/25/25 01/25/25 00:04 06:16 Temperature Pulse Rate 75 70 Respiratory 15 20 Rate Blood Pressure 128/82 175/110 O2 Sat by Pulse 97 Oximetry Chest Pain MDM - MDM Was pt. sent in by a medical professional or institution (, PA, EGG TRAYER, urgent care, hospital, or [place] health [place] facility...) When possible be specific @ -No Did you speak to anyone other than the patient for history (EMS, parent, family, police, friend...)? What history was obtained from this source @ -No Did you review nursing and triage notes (agree or disagree)? Why? @ -I reviewed and agree with nursing and triage notes Were old charts reviewed (outside hosp., previous admission, EMS record, old EKG, old radiological studies, urgent care reports/EKG's, [place] health care facility records)? Report findings @ -No old charts were reviewed Differential Diagnosis (chest pain, altered mental status, abdominal pain women, abdominal pain men, vaginal bleeding, weakness, fever, dyspnea, syncope, headache, dizziness, GI bleed, back pain, seizure, CVA, palpatations, mental health, musculoskeletal)? @ -Differential Chest Pain: Stable Angina, Unstable Angina, STEMI, NSTEMI Aortic Dissection, Pneumothorax, Musculoskeletal, Esophageal Spasm GERD, Cholecystitis, Pancreatitis, Zoster, this is not meant to be an all-inclusive list. EKG interpreted by me (3pts min.). @ -Yes and demonstrates sinus tachycardia with a rate of 111. OR interval 112. QRS 75. QTc of 397. No acute ST segment elevations or depressions X-rays interpreted by me (1pt min.). @ -Yes which demonstrates no acute process CT interpreted by me (1pt min.). @ -None done U/S interpreted by me (1pt. min.). @ -None done What testing was considered but not performed or refused? (CT, X-rays, U/S, labs)? Why? @ -None What meds were considered but not given or refused? Why? @ -None Did you discuss the management of the patient with other professionals (professionals i.e. , PA, EGG TRAYER, lab, RT, psych nurse, social problems specialist, floriculture professor, teacher, asset protection officer, case management associate)? Give summary @ -Spoke with Dr. Richardson for admission Was smoking cessation discussed for >3mins.? @ -No Was critical care preformed (if so, how long)? @ -No Were there social determinants of health that impacted care today? How? (Homelessness, low income, unemployed, alcoholism, drug addiction, transportation, low edu. Level, literacy, decrease access to med. care, nursing home, rehab)? @ -Patient is homeless Was there de-escalation of care discussed even if they declined (Discuss DNR or withdrawal of care, Hospice)? DNR status @ -No What co-morbidities impacted this encounter? (DM, HTN, Smoking, COPD, CAD, Cancer, CVA, ARF, Chemo, Hep., AIDS, mental health diagnosis, sleep apnea, morbid obesity)? @ -Hypertension Was patient admitted / discharged? Hospital course, mention meds given and route, prescriptions, significant lab abnormalities, going to OR and other pertinent info. @ -Upon arrival patient seen and evaluated in hallway 10. Thorough history and physical exam was performed. IV was established. Laboratory studies are conducted. Patient is tremulous, likely undergoing withdrawal and therefore he was given Ativan. Chest x-ray was performed. I discussed results with the patient. I do feel that the patient is not medically clear at this time due to his active chest pain. I recommended admission in order to trend the patient's troponins. Patient will be placed on cIWA protocol as he does appear to be in active withdrawal. Lastly the patient will require psychiatric evaluation due to his reported depression. Patient was agreeable to admission. I spoke with Dr. Richardson Undiagnosed new problem with uncertain prognosis? @ -No Drug Therapy requiring intensive monitoring for toxicity (Heparin, Nitro, Insulin, Cardizem)? @ -No Were any procedures done? @ -No Diagnosis/symptom? @ -Acute chest pain, EtOH abuse, impending DTs, depression with suicidal ideation Acute, or Chronic, or Acute on Chronic? @ -Acute Uncomplicated (without systemic symptoms) or Complicated (systemic symptoms)? @ -Complicated Side effects of treatment? @ -No Exacerbation, Progression, or Severe Exacerbation? @ -No Poses a threat to life or bodily function? How? (Chest pain, [place], [place], pneumonia, PE, COPD, DKA, ARF, appy, cholecystitis, CVA, Diverticulitis, Homicidal, Suicidal, threat to staff... and all critical care pts) @ -No Disposition Clinical Impression: Chest pain, Alcohol withdrawal, Depression Disposition: ADMITTED IP TO THIS [facility] Condition: Stable Is patient prescribed a controlled substance at d/c from ED?: No Time of Disposition: 15:38 Decision to Admit Reason: Admit from EC Decision Date: 01/24/25 Decision Time: 15:38
[2025-01-24] MEDS ORDERED: NALOXONE 0.4 MG/ML 1 ML VIAL IV PRN (15:38)
[2025-01-24] MEDS: ASPIRIN 81 MG PO STA (15:43)
[2025-01-24] MEDS: SODIUM CHLORIDE 0.9% 1,000 ML IV STA (15:43)
[2025-01-24] MEDS: LORazepam 2 MG/ML INJ IV STA (15:45)
[2025-01-24] MEDS ORDERED: LORazepam 2 MG/ML INJ IV PRN (15:45)
[2025-01-24] MEDS: FAMOTIDINE 20 MG/2 ML VIAL IV STA (15:49)
[2025-01-24] MEDS: SODIUM CHLORIDE 0.9% 1,000 ML IV SCH (16:29)
[2025-01-24] MEDS: MAGNESIUM SULFATE-D5W PMX 1 GM in DEXTROSE/WATER 1 100ML.BAG IVPB SCH (16:29)
[2025-01-24] MEDS: THIAMINE 100 MG TAB PO SCH (19:32)
--- NOTE | 2025-01-24 19:33 | P.HPIM ---
History of Present Illness H&P Date: 01/24/25 Chief Complaint: Chest pain Patient is a 49-year-old male with a known history of hypertension currently not taking any medications, anxiety/depression, currently everyday smoker and alcohol use and history of ovarian and opiate and marijuana use. Patient presented to ER with complaints of chest pain that started yesterday mainly left retrosternal region. Pressure-like sensation and felt like numbness in both arms and jaw.. Patient is also having nausea and episodes of vomiting at home. And also pressure-like heart racing or fast. Patient states that he has been drinking recently and states that he has been depressive recently. Drinks about 1 pint of vodka on daily basis over the past 10 days. Patient currently not taking any medications. Denied any suicidal ideation not having a plan. Denied any recent illnesses. No cough or sputum production. No fever no chills. No leg swelling. Chest x-ray showed no acute cardiopulmonary process. EKG showed sinus tachycardia Laboratory data showed WBC 8.1 hemoglobin 12.9 and platelets 198, sodium 132 potassium 3.9 chloride 97 bicarb is 28 BUN 18 and creatinine 0.67 blood sugar 127 and magnesium 1.5 Troponin 0.016 and 0.019. Liver enzymes are not elevated lipase 151 Urinalysis showed 2+ ketones. UDS is positive for marijuana. Serum marker level less than 10. Review of Systems Constitutional: Patient denies any fever or chills . Generalized weakness. No weight loss. Abdomen: Patient complains of nausea and vomiting and epigastric abdominal pain. Cardiovascular: Complains of chest pain. Mild short of breath and palpitations. No leg swelling Respiratory: patient denied any cough or sputum production. No shortness of breath Neurologic: Patient denied any numbness or tingling. no headache. Musculoskeletal: Patient denies any complaints of joint swelling or deformity. Skin: Negative Psychiatric: Negative Endocrine: No heat or cold intolerance. No recent weight gain. Genitourinary: No dysuria or hematuria. All other 14 point ROS negative except the above Past Medical History Past Medical History: Hypertension History of Any Multi-Drug Resistant Organisms: None Reported Past Surgical History: No Surgical Hx Reported Additional Past Surgical History / Comment(s): oral surgery Past Psychological History: Anxiety, Depression Smoking Status: Current every day smoker Past Alcohol Use History: Abuse Past Drug Use History: Heroin, Marijuana, Opiates Medications and Allergies Home Medications Medication Instructions Recorded Confirmed Type No Known Home Medications 01/24/25 01/24/25 History Allergies Allergy/AdvReac Type Severity Reaction Status Date / Time No Known Allergies Allergy Verified 01/24/25 16:16 Physical Exam Vitals: Vital Signs Temp Pulse Resp BP Pulse Ox 01/24/25 17:34 98 20 152/97 97 01/24/25 15:40 96 22 169/99 97 01/24/25 14:24 99.5 F 95 18 168/95 99 01/24/25 13:22 98.5 F 121 H 17 194/125 96 Intake and Output 01/24/25 01/24/25 01/24/25 06:59 14:59 22:59 Other: Weight 81.647 kg PHYSICAL EXAMINATION: Patient is lying in the bed comfortably, no acute distress, awake alert and oriented.. HEENT: Normocephalic. Neck is supple. Pupils reactive. Nostrils clear. Oral cavity is moist. Neck reveals no JVD, carotid bruits, or thyromegaly. CHEST EXAMINATION: Trachea is central. Symmetrical expansion. Lung wells clear to auscultation and percussion. CARDIAC: Normal S1, S2 with no gallops. No murmurs ABDOMEN: Soft. Bowel sounds normal. No organomegaly. No abdominal bruits. Extremities: reveal no edema. No clubbing or cyanosis Neurologically awake, alert, oriented x3 with well-coordinated movements. No focal deficits noted Skin: No rash or skin lesions. Psychiatric: Coperative. Nonsuicidal Musculoskeletal: No joint swelling or deformity. Normal range of motion. Results CBC & Chem 7: 01/24/25 14:24 01/24/25 14:24 Labs: Abnormal Lab Results - Last 24 Hours (Table) 01/24/25 01/24/25 01/24/25 Range/Units 14:24 14:24 14:42 RBC 4.15 L (4.30-5.90) m/uL Hgb 12.9 L (13.0-17.5) gm/dL Hct 38.6 L (39.0-53.0) % Sodium 132 L (137-145) mmol/L Chloride 97 L (98-107) mmol/L Glucose 127 H (74-99) mg/dL Magnesium 1.5 L (1.6-2.3) mg/dL Urine Protein 1+ H (Negative) Urine Ketones 2+ H (Negative) Urine Bacteria Rare H (None) /hpf Urine Mucus Rare H (None) /hpf U Marijuana (THC) Screen Detected H (NotDetected) Thrombosis Risk Factor Assmnt - DVT/VTE Prophylaxis DVT/VTE Prophylaxis: Pharmacologic Prophylaxis ordered Assessment and Plan Assessment: Atypical chest pain. Rule out ACS. Severe alcohol abuse. Patient has been drinking 1 pint of vodka on daily basis for the last 10 days. Hypomagnesia. Hypovolemic hyponatremia Normocytic anemia with hemoglobin 12.9 Depression. Currently not taking medications. Hypertension. Controlled. GI prophylaxis with Pepcid and DVT prophylax with heparin subcu Plan: Patient will be continued on gentle IV hydration we will continue with telemonitoring and serial EKG and troponin x 3. Cardiology was consulted for further evaluation. Monitor for alcohol withdrawal symptoms. Continue thiamine and multivitamins. Follow-up closely. Time with Patient: Greater than 30
[2025-01-24] MEDS: FAMOTIDINE 20 MG TAB PO SCH (20:19)
[2025-01-25] MEDS: HEPARIN SODIUM,PORCINE 5,000 UNIT/ML 1 ML VIAL SQ SCH (01:01)
[2025-01-25] MEDS: ONDANSETRON 4 MG/2 ML VIAL IVP PRN (06:24)
[2025-01-25] MEDS: LORazepam 2 MG/ML INJ IV PRN ×2 (06:24→11:44)
[2025-01-25] MEDS: ACETAMINOPHEN TAB 325 MG TAB PO PRN (06:25)
[2025-01-25 06:44] LABS: Basophils # (A) 0.1 k/uL (0-0.2); Basophils % (A) 1 %; Eosinophils # (A) 0.3 k/uL (0-0.7); Eosinophils % (A) 4 %; HCT 41.8 % (39.0-53.0); HGB 13.3 gm/dL (13.0-17.5); Lymphocytes # (A) 1.5 k/uL (1.0-4.8); Lymphocytes % (A) 21 %; MCH 30.9 pg (25.0-35.0); MCHC 31.8 g/dL (31.0-37.0); Mean Platelet Volume 8.1; Monocytes # (A) 0.3 k/uL (0-1.0); Monocytes % (A) 5 %; Neutrophils # (A) 4.9 k/uL (1.3-7.7); Neutrophils % (A) 68 %; Platelet Count 193 k/uL (150-450); RBC 4.31 m/uL (4.30-5.90); RDW 14.5 % (11.5-15.5); WBC 7.1 k/uL (3.8-10.6)
[2025-01-25] MEDS: MULTIVITAMINS, THERA 1 EACH TAB PO SCH (08:37)
[2025-01-25 10:51] LABS: Blood Urea Nitrogen 13.2 mg/dL (9.0-27.0); Calcium 8.4 mg/dL (8.7-10.3); Carbon Dioxide 27.7 mmol/L (21.6-31.8); Chloride 101 mmol/L (96-109); Chol/HDL Ratio 1.69 Ratio; Glucose 90 mg/dL (70-110); LDL Cholesterol,Calculated 75.9 mg/dL (0.0-131.0); Potassium 4.2 mmol/L (3.5-5.5); Sodium 137 mmol/L (135-145)
--- NOTE | 2025-01-25 14:06 | P.CN ---
Psychiatric Consult - . Consult date: 01/25/25 Consult:: 01/25/25 13:12 IDENTIFYING DATA: This patient is a 49-year-old male , he is homeless he has 1 daughter unemployed REASON FOR REFERRAL: Psychiatry was consulted for depression HISTORY OF PRESENT ILLNESS: The patient presented to the hospital initially on 01/24 for chest pain/pressure. Patient had negative troponins. He apparently has a history of opiate abuse, was apparently drinking alcohol heavily about 1 pint of vodka a day. Patient was reportedly indicating that he has been feeling depressed and anxious. Principal Biostatistician attempted to see patient at the bedside, he appeared to be disheveled in appearance. Claims that he has Micha been feeling a bit "sad" lately. States that it has been a "tough winter" and states that he has been homeless, staying in a tent. Claims that he has been drinking vodka just to get through the day. Denies any current withdrawal symptoms at this time. Claims that he is been drinking about a pint of vodka a day. Claims that his mood is better since being in the hospital not reporting any anxiety at this time. Claims that his sleep has been on and off. Appetite has been fair.. At this time patient denies any suicidal or homical ideations, intent or plan. Patient denies any auditory, visual hallucinations and denies any paranoia or delusions. Patients admits to using alcohol as noted above, claims that he smokes marijuana and also cigarettes. PAST PSYCHIATRIC HISTORY: Patient has a a history of depression/anxiety. He states that he has been on several different antidepressants in the past, states that he is not interested in being restarted back on any antidepressant at this time and was requesting to either be on Xanax and Valium or Percocet. Patient denies any previous psychiatric hospitalizations. Patient denies any psychiatric outpatient follow-up. Patient denies any history of suicide attempts in the past. Past Medical History: Hypertension History of Any Multi-Drug Resistant Organisms: None Reported Past Surgical History: No Surgical Hx Reported Additional Past Surgical History / Comment(s): oral surgery Past Psychological History: Anxiety, Depression Smoking Status: Current every day smoker Past Alcohol Use History: Abuse Past Drug Use History: Heroin, Marijuana, Opiates ALLERGIES: as per EMR. CHEMICAL DEPENDENCY HISTORY: as per HPI. FAMILY PSYCHIATRIC/SUBSTANCE USE HISTORY: Claims that his mother had some form of depression SOCIAL HISTORY: Patient was born and raised in [facility]. 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 He is homeless. Claims that he is never been a person however has been to halfway for nonpayment of child support at times. MENTAL STATUS EXAM: General Appearance: Patient appears to be thin, has a mcmahon, wearing a hat, dirty close, stated age is alert, attempts to be cooperative. Patient appears to have fair hygiene and grooming wearing hospital gown with fair eye contact. Behavior: Patient is calmly lying in bed without any agitated behavior. Somewhat manipulative. Speech: Patient's speech is fluent and nonpressured. Mood/Affect: Patient reports their mood is "better now", affect is congruent Suicidality/Homicidality: Patient denies having any suicidal or homicidal ideation intent or plan. Perceptions: Patient denies any visual hallucinations and denies any auditory matos llucinations Though content/process: There is no evidence of any delusional thought content and thought process is linear and goal-directed. Focused on obtaining controlled medications Memory and concentration: AOX3, grossly intact for the purposes of this session. Can spell "WORLD" backwards Judgment and insight: Poor IMPRESSIONS: Depressive disorder unspecified Rule out malingering Alcohol use disorder Cannabis use disorder Nicotine dependence Homelessness PLAN: -At this time patient DOES NOT meet criteria for inpatient psychiatric admission. -Would recommend the following medication changes/additions: Patient is not interested in any antidepressants at this time, is instead asking screen writer for controlled medications including opiates and benzodiazepines. Also offered patient anticraving medications for alcohol use however he is refusing it. -CIWA protocol with PRN Ativan for alcohol withdrawal. Continue to monitor vital signs. -painting and coating worker to provide patient with outpatient mental health/psychiatry resources for appropriate follow up upon discharge. Please give [facility] follow-up information -Principal Biostatistician spoke with patient about substance abuse and the harmful effects on medical and mental health, patient verbally understood and agreed. -painting and coating worker to provide patient substance use treatment resources including AA/NA meetings in the community. -painting and coating worker to provide patient with access line number to call for inpatient substance rehab -Communicated plan to patient's nurse -Psychiatry will sign off at this time -Please contact with any questions. 01/25/25 14:01
[2025-01-25] MEDS: chlordiazePOXIDE 25 MG CAP PO SCH (14:09)
[2025-01-25 15:46] VITALS: BP 140/89; PULSE 88; RESP 16; TEMP 98
--- NOTE | 2025-01-25 21:06 | P.HPCAR ---
History of Present Illness Impression 49-year-old male patient presenting with chest discomfort shortness of breath feeling hot flushed tingly all over He has been drinking vodka for 2 straight weeks on a daily basis Normal cardiac enzymes no evidence for acute myocardial infarction Twelve-lead EKG without ST segment abnormalities suggest Echo and Doppler study evaluation of chest discomfort A1c Lipid panel History of present illness This is a [facility] and states that he was drinking vodka on a daily basis in substantial amounts and then became hot and tingly all over and felt very flushed He also had some chest discomfort He was admitted for a cardiac evaluation with normal twelve-lead EKG and normal cardiac enzymes On examination resting comfortably in bed Blood pressure normal range Heart sounds normal breath sounds are clear Labs normal troponins Physical Exam Vitals: Vital Signs Temp Pulse Resp BP Pulse Ox 01/25/25 06:16 70 20 175/110 97 01/25/25 00:04 75 15 128/82 01/24/25 22:00 77 15 142/99 96 01/24/25 19:04 98.3 F 87 18 147/105 98 01/24/25 17:34 98 20 152/97 97 01/24/25 15:40 96 22 169/99 97 01/24/25 14:24 99.5 F 95 18 168/95 99 01/24/25 13:22 98.5 F 121 H 17 194/125 96 Past Medical History Past Medical History: Hypertension History of Any Multi-Drug Resistant Organisms: None Reported Past Surgical History: No Surgical Hx Reported Additional Past Surgical History / Comment(s): oral surgery Past Psychological History: Anxiety, Depression Smoking Status: Current every day smoker Past Alcohol Use History: Abuse Past Drug Use History: Heroin, Marijuana, Opiates Physical Examination Vital Signs Temp Pulse Resp BP Pulse Ox 01/25/25 06:16 70 20 175/110 97 01/25/25 00:04 75 15 128/82 01/24/25 22:00 77 15 142/99 96 01/24/25 19:04 98.3 F 87 18 147/105 98 01/24/25 17:34 98 20 152/97 97 01/24/25 15:40 96 22 169/99 97 01/24/25 14:24 99.5 F 95 18 168/95 99 01/24/25 13:22 98.5 F 121 H 17 194/125 96 Results 01/25/25 06:09 01/25/25 06:09 Cardiac Enzymes 01/24/25 01/24/25 01/24/25 Range/Units 14:24 14:24 17:54 AST 50 (17-59) U/L Troponin I 0.016 0.019 (0.000-0.034) ng/mL 01/24/25 Range/Units 20:20 AST (17-59) U/L Troponin I 0.014 (0.000-0.034) ng/mL Coagulation 01/24/25 Range/Units 14:24 PT 10.3 (10.0-12.5) sec APTT 22.2 (22.0-30.0) sec CBC 01/24/25 01/25/25 Range/Units 14:24 06:09 WBC 8.1 7.1 (3.8-10.6) k/uL RBC 4.15 L 4.31 (4.30-5.90) m/uL Hgb 12.9 L 13.3 (13.0-17.5) gm/dL Hct 38.6 L 41.8 (39.0-53.0) % Plt Count 198 193 (150-450) k/uL Comprehensive Metabolic Panel 01/24/25 Range/Units 14:24 Sodium 132 L (137-145) mmol/L Potassium 3.9 (3.5-5.1) mmol/L Chloride 97 L (98-107) mmol/L Carbon Dioxide 28 (22-30) mmol/L BUN 18 (9-20) mg/dL Creatinine 0.67 (0.66-1.25) mg/dL Glucose 127 H (74-99) mg/dL Calcium 8.7 (8.4-10.2) mg/dL AST 50 (17-59) U/L ALT 36 (4-49) U/L Alkaline Phosphatase 77 (38-126) U/L Total Protein 6.4 (6.3-8.2) g/dL Albumin 4.2 (3.5-5.0) g/dL Current Medications Generic Name Dose Route Start Last Admin Trade Name Freq PRN Reason Stop Dose Admin Acetaminophen 650 mg 01/24/25 15:38 01/25/25 06:25 Acetaminophen Tab 325 Mg Tab PO 650 mg Q6HR PRN Administration Mild Pain or Fever > 100.5 Famotidine 20 mg 01/24/25 21:00 01/24/25 20:19 Famotidine 20 Mg Tab PO 20 mg BID LIAM Administration Heparin Sodium (Porcine) 5,000 unit 01/25/25 00:00 01/25/25 01:01 Heparin Sodium,Porcine 5,000 Unit/Ml 1 Ml Vial SQ 5,000 unit Q8HR LIAM Administration Sodium Chloride 1,000 mls @ 75 mls/hr 01/24/25 15:45 01/24/25 16:29 Saline 0.9% IV 75 mls/hr .[id number] LIAM Administration Lorazepam 1 mg 01/24/25 15:45 Lorazepam 2 Mg/Ml Inj IV Q1HR PRN CIWA 10 to 15 Lorazepam 1 mg 01/24/25 15:45 01/25/25 06:24 Lorazepam 2 Mg/Ml Inj IV 1 mg Q2HR PRN Administration CIWA 8 or 9 Lorazepam 2 mg 01/24/25 15:45 Lorazepam 2 Mg/Ml Inj IV 01/26/25 15:45 Q10M PRN CIWA 16 or higher Multivitamins 1 each 01/25/25 09:00 Multivitamins, Thera 1 Each Tab PO DAILY LIAM Naloxone HCl 0.2 mg 01/24/25 15:38 Naloxone 0.4 Mg/Ml 1 Ml Vial IV Q2M PRN Opioid Reversal Ondansetron HCl 4 mg 01/24/25 15:38 01/25/25 06:24 Ondansetron 4 Mg/2 Ml Vial IVP 4 mg Q8HR PRN Administration Nausea And Vomiting Thiamine HCl 100 mg 01/24/25 19:30 01/24/25 19:32 Thiamine 100 Mg Tab PO 100 mg DAILY LIAM Administration 01/25/25 06:09 01/24/25 14:24
--- NOTE | 2025-01-27 10:00 | P.DS ---
Providers Date of admission: 01/24/25 15:38 Expected date of discharge: 01/25/25 Attending physician: Sonia Richardson Consults: 01/24/25 15:38 Consult Physician Urgent Consulting Provider: Psychiatry - [facility] Psych[facility]ry Consult Reason/Comments: depression Do you want consulting provider notified?: Yes Consult Physician Urgent Consulting Provider: [facility] Consult Reason/Comments: chest pain Do you want consulting provider notified?: Yes Primary care physician: Stated None Hospital Course: Final diagnosis Atypical chest pain. Ruled out ACS. Severe alcohol abuse. Patient has been drinking 1 pint of vodka on daily basis for the last 10 days. Concerns for acute alcohol withdrawal and delirium tremens Hypomagnesia. Replaced and improved Hypovolemic hyponatremia Normocytic anemia with hemoglobin 12.9 Depression. Currently not taking medications. Denies suicidal ideation and homicidal ideation Hypertension. Uncontrolled, has not been taking medications GI prophylaxis with Pepcid DVT prophylax with heparin subcu Full code Discharge disposition Patient is being discharged in a stable condition with guarded prognosis to home with outpatient resources including inpatient alcohol rehab. Patient will follow-up with Dr. David Smyth to establish in the outpatient setting upon discharge. Patient is to continue with Librium taper and complete alcohol cessation and outpatient follow-up with cardiology as scheduled. Total time taken is greater than 35 minutes. Hospital course This is a 49-year-old male who was recently admitted with concerns of acute alcohol withdrawal and acute delirium tremens along with associated chest pain. Patient evaluated by cardiology and ACS ruled out recommending outpatient follow-up. Blood pressure medications have been resumed patient has been out and patient has also been increasingly depressed drinking more was evaluated by psychiatry does not meet inpatient criteria has been started on medication recommending outpatient follow-up with [facility]. Patient also given blood pressure medications and will continue Librium taper on discharge. Patient has been instructed to follow-up with inpatient alcohol rehab outpatient. Please refer to other consultation notes for further HPI. Currently no reports of chest pain, shortness of breath, or palpitations. Patient is afebrile. No reports of nausea or vomiting and patient is tolerating diet. Patient will be discharged home today. Guarded prognosis given continued ongoing alcohol abuse. Physical exam: Gen: This is a 49-year-old male who is awake, alert and oriented x 3, well- developed, elderly appearing, thin built HEENT: Head is atraumatic, normocephalic. Pupils equal, round. Sclerae is anicteric. NECK: Supple. No JVD. No lymphadenopathy. No thyromegaly. LUNGS: Clear to auscultation. No wheezes or rhonchi. No intercostal retractions. HEART: Regular rate and rhythm. No murmur. ABDOMEN: Soft. Bowel sounds are present. No masses. No tenderness. EXTREMITIES: No pedal edema. No calf tenderness. NEUROLOGICAL: Patient is awake, alert and oriented x3. Cranial nerves 2 through 12 are grossly intact. Please refer to medication reconciliation sheet for a list of medications. The impression and plan of care has been dictated by Bre Wallis, Nurse Practitioner as directed. Dr. Haja MD I have performed a history and examination and MDM of this patient, discussed the same with the dictator, and agree with the dictator's assessment and plan as written ,documented as a scribe. Based on total visit time, I have performed more than 50% of the visit. Patient Condition at Discharge: Stable Plan - Discharge Summary Discharge Rx Participant: Yes New Discharge Prescriptions: New chlordiazePOXIDE HCl [Librium] 25 mg PO TID #6 cap Acetaminophen Tab [Tylenol] 650 mg PO Q6HR PRN tab PRN Reason: Mild Pain Or Fever > 100.5 Thiamine [Vitamin B-1] 100 mg PO DAILY #30 tab lisinopriL 40 mg PO DAILY 30 Days #30 tab Multivitamins, Thera [Multivitamin (formulary)] 1 each PO DAILY #30 tab Famotidine [Pepcid] 20 mg PO BID #60 tab Discharge Medication List Acetaminophen Tab [Tylenol] 650 mg PO Q6HR PRN tab 01/25/25 [Rx] Famotidine [Pepcid] 20 mg PO BID #60 tab 01/25/25 [Rx] Multivitamins, Thera [Multivitamin (formulary)] 1 each PO DAILY #30 tab 01/25/25 [Rx] Thiamine [Vitamin B-1] 100 mg PO DAILY #30 tab 01/25/25 [Rx] chlordiazePOXIDE HCl [Librium] 25 mg PO TID #6 cap 01/25/25 [Rx] lisinopriL 40 mg PO DAILY 30 Days #30 tab 01/25/25 [Rx] Follow up Appointment(s)/Referral(s): Teo Wallis MD [STAFF PHYSICIAN] - 1 Week Lis Rinaldi MD [STAFF PHYSICIAN] - 1 Week Activity/Diet/Wound Care/Special Instructions: Activity limited until follow-up Follow-up with primary care provider to establish Follow-up with cardiology outpatient Continue taking medications as prescribed Avoid alcohol use and exposure Discharge/Stand Alone Forms: NA Meetings in [place], AA Meetings [facility], [facility], Community [facility], In Substance Abuse Facilities, Area PCPs Discharge Disposition: HOME SELF-CARE
== END 2025-01-25 15:45 | disposition home or self-care (01) ==
LOC: EC 13:17 → 6NMEDSUR 15:38 → 1SOBS 01-25 01:37
PROVIDERS: ADMIT Internal Medicine; ATTEND Internal Medicine
DX: R07.89 Other chest pain (principal); E83.42 Hypomagnesemia; E86.1 Hypovolemia; E87.1 Hypo-osmolality and hyponatremia; F10.10 Alcohol abuse, uncomplicated; D64.9 Anemia, unspecified; F17.200 Nicotine dependence, unspecified, uncomplicated; F32.A Depression, unspecified; F41.9 Anxiety disorder, unspecified; I10 Essential (primary) hypertension; F11.11 Opioid abuse, in remission; Z59.00 Homelessness unspecified; Z79.899 Other long term (current) drug therapy
CPT/HCPCS: 96372 ×2; 96376 ×2; 96361; 96365; 96366; 96375 ×2; 99285; 36415; 93005; 80053; 80048; 80061; 84443; 83690; 83735; 84484; 85025 ×2; 85610; 85730; 81001; 80306; 83036; 71046; G0378 ×2; G0480; J2060 ×2; J1644; J2405; J3490; J3475; 80320